=== PATIENT | female | born 1970 | race Caucasian/White ===

== ENCOUNTER 2020-09-17 20:34 | Inpatient (IN) ==
[2020-09-18 00:03] LABS: Basophils # 0.1 10*3/uL (0.0-0.2); Basophils % 0.7 % (0.0-0.8); Eosinophils # 0.2 10*3/uL (0.0-0.87); Eosinophils % 1.3 % (0.00-10.9); Hematocrit 38.9 VOL% (35.7-47.0); Immature Granulocytes % 0.6 %; Lymphocytes # 4.8 10*3/uL (1.4-4.0); Mean Corpuscular HGB Conc 30.8 GM/DL (32-36); Mean Corpuscular Volume 74.4 FL (87-102); Mean Platelet Volume 11.2 FL (9.6-12.0); Monocytes % 9.1 % (1.7-12.7); Neutrophils % 60.3 % (38.7-73.9); Platelet Count 422 T/CUMM (130-400); Red Blood Count 5.23 MC/CUMM (3.8-5.5); Red Cell Distribution Width 19.3 % (9.3-17.3); White Blood Count 17.1 T/CUMM (4-12)
[2020-09-18 00:16] LABS: Calcium 9.1 MG/DL (8.5-10.1); Osmolality,Calculated 273.2 MOS/KG (273-304); Potassium 3.7 MMOL/L (3.5-5.1)
[2020-09-18 00:23] LABS: Eosinophils 2 % (0-10); Lymphocytes 28 % (20-55); Microcytosis 1+; Platelet Estimate Increased; Segmented Neutrophils 62 % (50-85); Total Cells Counted 100
[2020-09-18] MEDS ORDERED: ACETAMINOPHEN 500 MG TABLET PO STA (03:27)
[2020-09-18] MEDS ORDERED: ALBUTEROL 2.5 MG/3 ML NEB RESP TX PRN (05:13)
[2020-09-18] MEDS ORDERED: DOCUSATE SODIUM 100 MG CAPSULE PO PRN (05:17)
[2020-09-18] MEDS ORDERED: ONDANSETRON 4 MG/2 ML VIAL IV PRN (05:17)
[2020-09-18] MEDS ORDERED: GLUCAGON 1 MG VIAL IM PRN (05:17)
[2020-09-18] MEDS ORDERED: hydrALAZINE 20 MG/1 ML VIAL IV PRN (05:17)
[2020-09-18] MEDS ORDERED: DEXTROSE 50% 25 GM/50 ML VIAL IV PRN (05:17)
[2020-09-18] MEDS ORDERED: SODIUM CHLORIDE 0.9% 1,000 ML IV SCH (05:30)
[2020-09-18] MEDS: LEVOFLOXACIN INJ 750 MG in PREMIX 1 EACH IV SCH (06:25)
[2020-09-18] MEDS: ALBUTEROL/IPRATROPIUM 3 ML NEB RESP TX SCH ×3 (07:14→19:34)
[2020-09-18 07:23] LABS: Risk Ratio 5.11; VLDL CHOLESTEROL 81.8 MG/DL
[2020-09-18] MEDS: INSULIN LISPRO 100 UNIT/ML SUBCUT SCH ×4 (07:49→20:20)
[2020-09-18] MEDS: ACETAMINOPHEN 325 MG TABLET PO PRN ×3 (10:06→20:16)
[2020-09-18 10:22] LABS: Bilirubin,Urine Negative (Negative); Blood, Urine Negative (Negative); Glucose,Urine (UA) Negative (Negative); Ketones,Urine Negative (Negative); Mucus,Urine Occasional /LPF (Occasional); Nitrite,Urine Negative (Negative); Protein,Urine Negative; RBC,Urine <1 /HPF (0-4); Squamous Epithelial Cell,Urine Occasional /HPF (0-10); Urine Appearance CLEAR (Clear); Urine Color Yellow (Yellow); Urine Specific Gravity 1.018 (1.001-1.035); Urine Urobilinogen < 2.0 EU/DL (0.2-1.0); WBC,Urine <1 /HPF (0-6)
[2020-09-18 11:07] LABS: Barbiturates Screen,Urine Negative (Negative); Benzodiazepines Screen,Urine Negative (Negative); Cannabinoid Screen,Urine Negative (Negative); Opiate Screen,Urine Positive (Negative); Phencyclidine Screen,Urine Negative (Negative)
[2020-09-18] MEDS: NICOTINE 21 MG/24 HR PATCH TRANSDERM SCH (14:14)
[2020-09-18] MEDS: GABAPENTIN 400 MG CAPSULE PO SCH ×2 (14:15→20:17)
[2020-09-18] MEDS: ENOXAPARIN 40 MG/0.4 ML SYRINGE SUBCUT SCH (20:18)
[2020-09-19] MEDS: ACETAMINOPHEN 325 MG TABLET PO PRN ×5 (00:41→21:43)
[2020-09-19] MEDS: ALBUTEROL/IPRATROPIUM 3 ML NEB RESP TX SCH ×4 (01:15→19:49)
[2020-09-19 05:36] LABS: Basophils # 0.1 10*3/uL (0.0-0.2); Basophils % 0.9 % (0.0-0.8); Eosinophils # 0.5 10*3/uL (0.0-0.87); Hematocrit 36.5 VOL% (35.7-47.0); Hemoglobin 11.1 GM/DL (12.0-16.0); Immature Granulocytes % 0.4 %; Immature Granulocytes Absolute 0.05 #; Lymphocytes % 34.1 % (21.3-54.2); Mean Corpuscular HGB Conc 30.4 GM/DL (32-36); Mean Corpuscular Volume 74.8 FL (87-102); Mean Platelet Volume 11.2 FL (9.6-12.0); Monocytes % 9.6 % (1.7-12.7); Platelet Count 369 T/CUMM (130-400); Red Blood Count 4.88 MC/CUMM (3.8-5.5); Red Cell Distribution Width 19.2 % (9.3-17.3); White Blood Count 11.8 T/CUMM (4-12)
[2020-09-19 06:02] LABS: Hypochromasia 1+; Microcytosis 1+; Platelet Estimate Adequate
[2020-09-19] MEDS: PANTOPRAZOLE 40 MG TABLET PO SCH (06:06)
[2020-09-19 06:08] LABS: Albumin 2.8 G/DL (3.4-5.0); Bilirubin,Total 0.6 MG/DL (0.2-1.0); Calcium 8.9 MG/DL (8.5-10.1); Osmolality,Calculated 281.4 MOS/KG (273-304); Potassium 3.7 MMOL/L (3.5-5.1)
[2020-09-19] MEDS: INSULIN LISPRO 100 UNIT/ML SUBCUT SCH ×4 (07:50→20:26)
[2020-09-19] MEDS: DULoxetine 30 MG CAPSULE PO SCH (08:24)
[2020-09-19] MEDS: GABAPENTIN 400 MG CAPSULE PO SCH ×3 (08:24→20:26)
[2020-09-19] MEDS: NICOTINE 21 MG/24 HR PATCH TRANSDERM SCH (08:24)
[2020-09-19] MEDS: ENOXAPARIN 40 MG/0.4 ML SYRINGE SUBCUT SCH (20:27)
[2020-09-20] MEDS: ALBUTEROL/IPRATROPIUM 3 ML NEB RESP TX SCH ×3 (01:08→13:27)
[2020-09-20] MEDS: ACETAMINOPHEN 325 MG TABLET PO PRN ×4 (02:15→14:56)
[2020-09-20] MEDS: PANTOPRAZOLE 40 MG TABLET PO SCH (05:50)
[2020-09-20] MEDS: INSULIN LISPRO 100 UNIT/ML SUBCUT SCH ×3 (08:26→15:59)
[2020-09-20] MEDS: DULoxetine 30 MG CAPSULE PO SCH (08:37)
[2020-09-20] MEDS: NICOTINE 21 MG/24 HR PATCH TRANSDERM SCH (08:37)
[2020-09-20] MEDS: LEVOFLOXACIN INJ 750 MG in PREMIX 1 EACH IV SCH (08:37)
[2020-09-20] MEDS: GABAPENTIN 400 MG CAPSULE PO SCH ×2 (08:38→14:54)
[2020-09-20 11:56] VITALS: BP 142/74
== END 2020-09-20 17:19 | DRG 194 ==
LOC: N.ED 20:34 → N.EDINP 09-18 01:24 → N.5E 09-18 04:22
PROVIDERS: ADMIT Internal Medicine; ATTEND Internal Medicine